=== PATIENT | male | born 1955 | race Caucasian/White ===

== ENCOUNTER 2017-08-16 12:56 | Day surgery (SDC) | payer OTHER ==
[~2017-08-16] VITALS: Ht 182.9 cm; Wt 95.2 kg
[~2017-08-16 12:56] MED LIST: FOLIC ACID1 MG PO; VITAMIN D250000 UNIT PO
--- NOTE | 2017-08-16 15:42 | NUR ---
08/16/17 1542 THOMAS,MARIA ISABEL Nelson 1538: DR. RAMIREZ AT BEDSIDE TALKING WITH PATIENT. 1541: O2 TURNED OFF. PATIENT ON ROOM AIR. DENIES PAIN.
--- NOTE | 2017-08-17 11:54 | OR ---
[facility] [address], [place] [address] Signed DATE OF OPERATION: 08/16/2017 SURGEON: Purnima Ramirez MD PREOPERATIVE DIAGNOSIS: History of diminutive polyp of rectum in 2007, asymptomatic otherwise. POSTOPERATIVE DIAGNOSIS: Normal colon to cecum except for internal hemorrhoids. PROCEDURE: Total colonoscopy to cecum. ANESTHESIA: Intravenous sedation, fentanyl 100 mcg, Versed 5 mg. INDICATION: This 62-year-old white man is a patient of Dr. 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 He underwent colonoscopy by me in 2007, at which time he had a very tiny polyp of the rectum. He is asymptomatic, but is here for surveillance colonoscopy, understands the risks of bleeding, infection, and perforation with colonoscopy. He understands these risks. He wished to proceed. FINDINGS: The prep was good. Complete colonoscopy was undertaken of the cecum. There was no sign of polyps or diverticular formation. He did have some internal hemorrhoids. No other problems of concern. PROCEDURE IN DETAIL: The patient was brought to the endoscopy suite and placed in lateral decubitus position, given intravenous sedation to the point of slurred speech and nystagmus. Digital rectal examination was normal. An Olympus video colonoscope was passed in the rectum and manipulated throughout the colon, ultimately intubating the cecum itself. Ileocecal valve was normal. Scope was withdrawn from that point. Examination throughout showed no sign of abnormality, specifically no polyps, diverticular formation, colitis, or cancer. Retroflexed view in the rectum did show internal hemorrhoidal changes. The scope was removed, and the patient was taken to the recovery room in good condition. Electronically Signed By: PURNIMA RAMIREZ MD 08/17/17 1154 PATIENT NAME: KAREN SHANE OPERATIVE REPORT DATE OF : 59 PHYSICIAN: PURNIMA RAMIREZ MD REPORT #: [id number] REPORT IS CONFIDENTIAL AND NOT TO BE RELEASED WITHOUT AUTHORIZATION [facility] [address], [place] [address] Signed CONCLUDING DIAGNOSIS: Essentially normal colon except for internal hemorrhoids. Recommend repeat colonoscopy in 10 years. Recommend high-fiber diet as well. MD ADE Will/SAMANTHAL /[id number] cc: Dr. Pollock Electronically Signed By: PURNIMA RAMIREZ MD 08/17/17 1154 PATIENT NAME: KAREN SHANE OPERATIVE REPORT DATE OF : 59 PHYSICIAN: PURNIMA RAMIREZ MD REPORT #: [id number] REPORT IS CONFIDENTIAL AND NOT TO BE RELEASED WITHOUT AUTHORIZATION
== END 2017-08-16 16:15 | disposition home or self-care (01) ==
LOC: OPS 12:56 → DS 12:56 → OPS 14:00
PROVIDERS: Surgery
PROC: 0DJD8ZZ Inspection of Lower Intestinal Tract, Via Natural or Artificial Opening Endoscopic (ICD-10-PCS; principal; 2017-08-16 14:00)
DX: Z12.11 Encounter for screening for malignant neoplasm of colon (principal); K64.8 Other hemorrhoids; F89 Unspecified disorder of psychological development; Z86.010 Personal history of colon polyps; Z88.0 Allergy status to penicillin; Z98.890 Other specified postprocedural states; Z79.899 Other long term (current) drug therapy
CPT/HCPCS: 99152; 99153; J2250; J3010; J7120